=== PATIENT | female | born 2000 | race Caucasian/White ===

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

== ENCOUNTER 2021-04-22 19:58 | Emergency (ER) | payer BC ==
[2021-04-22] MEDS ORDERED: Ondansetron 4 MG/2 ML SDV IVPUSH ONE (20:11)
[2021-04-22] MEDS ORDERED: Sodium Chloride 0.9% 1,000 ML IV ONE (20:11)
[2021-04-22 20:53] LABS: ANION GAP 11.1 meq/L (7-15); CHLORIDE,CL 104 mmol/L (98-107); SODIUM,NA 141 mmol/L (136-145)
[2021-04-22 21:01] LABS: BARBITURATE SCREEN,URINE NEGATIVE (NEGATIVE); BENZODIAZEPINES SCREEN,URINE NEGATIVE (NEGATIVE); EDDP,URINE SCREEN NEGATIVE (NEGATIVE); TCA SCREEN,URINE NEGATIVE (NEGATIVE); THC SCREEN,URINE 50 NG/ML NEGATIVE (NEGATIVE)
[2021-04-22 21:03] LABS: BUPRENORPHINE SCREEN,URINE NEGATIVE (NEGATIVE)
[2021-04-22] MEDS ORDERED: Meclizine 25 MG Tab PO ONE (21:25)
[2021-04-22] MEDS ORDERED: LORazepam 2 MG/ML SDV IVPUSH ONE (21:26)
[2021-04-22 21:33] VITALS: PULSE 82
--- NOTE | 2021-04-22 22:02 | EDM.PDOC ---
ED HPI GENERAL MEDICAL PROBLEM - General Chief Complaint: Cardiovascular Problem Stated Complaint: TACHYCARDIA, DIZZINESS, LIGHTHEADED Time Seen by Provider: 04/22/21 20:33 Source of Information: Reports: Patient History Limitations: Reports: No Limitations - History of Present Illness INITIAL COMMENTS - FREE TEXT/NARRATIVE: Patient comes to ER with complaint of not feeling well this week. Recalls having some ear pressure bilaterally and nasal drainage over the weekend. No sore throat. Thought it might be due to allergies. Yesterday evening started to feel lightheaded when she was up and moving around. Decreased appetite and fluid intake last 24 hours. No appetite. Tonight felt warm, lightheaded feeling worse. Vomited three times. Unable to sleep last night. No one else sick at home. No fevers. No cough/wheeze/SOB. No body aches/headache. No pain complaint. No neuro changes. No UTI complaints. No new supplements/medications. No diarrhea - Related Data Allergies Allergy/AdvReac Type Severity Reaction Status Date / Time No Known Allergies Allergy Verified 04/22/21 20:04 Home Meds: Home Meds Escitalopram Oxalate 10 mg PO DAILY 04/22/21 [History] Levonorgestrel/Ethin.estradiol [Levonor-Eth Estrad 0.15-0.03] 1 tab PO DAILY 04/22/21 [History] Ondansetron [Zofran ODT] 4 mg PO Q6H PRN #5 tab.dis 04/22/21 [Rx] Past Medical History - Past Health History Medical/Surgical History: Denies Medical/Surgical History HEENT History: Reports: Allergic Rhinitis Psychiatric History: Reports: Anxiety Endocrine/Metabolic History: Reports: Obesity/BMI 30+ Immunologic History: Reports: None Oncologic (Cancer) History: Reports: None - Infectious Disease History Infectious Disease History: Reports: None Social & Family History - Family History Family Medical History: No Pertinent Family History - Tobacco Use Tobacco Use Status *Q: Never Tobacco User Second Hand Smoke Exposure: No - Caffeine Use Caffeine Use: Reports: None - Recreational Drug Use Recreational Drug Use: No ED ROS GENERAL - Review of Systems Review Of Systems: Comprehensive ROS is negative, except as noted in HPI. ED EXAM, GENERAL - Physical Exam Exam: See Below Exam Limited By: No Limitations General Appearance: Alert, WD/WN, No Apparent Distress Eye Exam: Bilateral Eye: EOMI, PERRL Ears: Normal External Exam, Normal Canal, Hearing Grossly Normal, Normal TMs Nose: No: Nasal Deformity, Nasal Swelling, Nasal Drainage Throat/Mouth: Normal Inspection, Normal Lips, Normal Oropharynx, Normal Voice, No Airway Compromise Head: Atraumatic, Normocephalic Neck: Normal Inspection, Supple, Non-Tender, Full Range of Motion Respiratory/Chest: No Respiratory Distress, Lungs Clear, Normal Breath Sounds, No Accessory Muscle Use Cardiovascular: Normal Peripheral Pulses, Regular Rate, Rhythm (rate 90s), No JVD, No Murmur GI/Abdominal: Soft, Non-Tender, No Distention, Abnormal Bowel Sounds (diminished) (Female) Exam: Deferred Rectal (Female) Exam: Deferred Back Exam: No: CVA Tenderness (L), CVA Tenderness (R), Muscle Spasm Extremities: Normal Inspection, Normal Range of Motion, No Pedal Edema, Normal Capillary Refill Neurological: Alert, Oriented, Normal Cognition, Normal Gait, No Motor/Sensory Deficits Psychiatric: Normal Affect, Normal Mood Skin Exam: Warm, Dry, Intact, Normal Color #1 Interpretation EKG Date: 04/22/21 Time: 20:33 Rhythm: Other (sinus tach) Rate (Beats/Min): 102 Avis: Normal P-Wave: Present QRS: Normal ST-T: Normal QT: Normal Comparison: NA - No Prior EKG Course - Vital Signs Last Recorded V/S: Last Vital Signs Temp 36.7 C 04/22/21 19:59 Pulse 82 04/22/21 21:32 Resp 17 04/22/21 21:32 BP 130/85 04/22/21 22:04 Pulse Ox 100 04/22/21 21:32 - Orders/Labs/Meds Orders: Active Orders 24 hr Category Date Time Status Orthostatic Vital Signs [RC] ASDIRECTED Care 04/22/21 21:44 Ordered CXR [Chest 1V Frontal] [CR] Stat Exams 04/22/21 20:11 Taken CORONAVIRUS COVID-19 TALHA [MOLEC] Stat Lab 04/22/21 20:40 Received Labs: Laboratory Tests 04/22/21 04/22/21 04/22/21 Range/Units 20:25 20:25 20:26 WBC 13.6 H (4.0-10.2) K/uL RBC 4.97 (3.77-5.09) M/uL Hgb 14.1 (11.7-15.5) g/dL Hct 41.7 (34.0-46.0) % MCV 83.9 L (84.0-98.0) fL MCH 28.4 (28.2-33.3) pg MCHC 33.8 (31.7-36.0) g/dL RDW 13.0 (11.2-14.1) % Plt Count 328 (150-350) K/uL Neut % (Auto) 74.8 (45.0-80.0) % Lymph % (Auto) 15.4 (10.0-50.0) % [place] % (Auto) 8.5 (2.0-14.0) % Eos % (Auto) 1.1 (0.0-5.0) % Baso % (Auto) 0.2 (0.0-2.0) % Neut # (Auto) 10.17 H (1.40-7.00) K/uL Lymph # (Auto) 2.10 (0.50-3.50) K/uL [place] # (Auto) 1.16 H (0.00-1.00) K/uL Eos # (Auto) 0.15 (0.00-0.50) K/uL Baso # (Auto) 0.03 (0.00-0.20) K/uL Sodium 141 (136-145) mmol/L Potassium 3.7 (3.5-5.1) mmol/L Chloride 104 (98-107) mmol/L Carbon Dioxide 25.9 (21.0-32.0) mmol/L Anion Gap 11.1 (7-15) meq/L BUN 7 (7-18) mg/dL Creatinine 0.63 (0.51-1.17) mg/dL Est Cr Clr Drug Dosing 118.81 mL/min Estimated GFR (MDRD) > 60 mL/min Glucose 92 (70-99) mg/dL Calcium 8.9 (8.5-10.1) mg/dL Magnesium 1.9 (1.8-2.4) mg/dL Total Bilirubin 0.2 (0.2-1.0) mg/dL AST 16 (15-37) U/L ALT 25 (12-78) U/L Alkaline Phosphatase 62 (46-116) IU/L Troponin I High Sens < 4 (<=51) ng/L Total Protein 7.7 (6.4-8.2) g/dL Albumin 3.5 (3.4-5.0) g/dL Specimen Type Urinvoid Urine Color Yellow Urine Appearance Slightly cloudy Urine pH 6.5 (5.0-9.0) Ur Specific [place] 1.025 (1.005-1.030) Urine Protein Negative (NEGATIVE) mg/dL Urine Glucose (UA) Negative (NEGATIVE) mg/dL Urine Ketones Negative (NEGATIVE) mg/dL Urine Occult Blood Negative (NEGATIVE) Urine Nitrite Negative (NEGATIVE) Urine Bilirubin Negative (NEGATIVE) Urine Urobilinogen 0.2 (0.2-1.0) E.U./dL Ur Leukocyte Esterase Negative (NEGATIVE) Urine HCG, Qual Urine Opiates Screen (NEGATIVE) Ur Buprenorphine Scrn (NEGATIVE) Ur Oxycodone Screen (NEGATIVE) Ur EDDP (Meth Metab) (NEGATIVE) Ur Barbiturates Screen (NEGATIVE) Ur Tricyclics Screen (NEGATIVE) Ur Amphetamine Screen (NEGATIVE) U Methamphetamines Scrn (NEGATIVE) Urine MDMA Screen (NEGATIVE) U Benzodiazepines Scrn (NEGATIVE) U Cocaine Metab Screen (NEGATIVE) U Marijuana (THC) Screen (NEGATIVE) SARS-CoV-2 Ag (Rapid) (NEGATIVE) 04/22/21 04/22/21 04/22/21 Range/Units 20:26 20:40 20:40 WBC (4.0-10.2) K/uL RBC (3.77-5.09) M/uL Hgb (11.7-15.5) g/dL Hct (34.0-46.0) % MCV (84.0-98.0) fL MCH (28.2-33.3) pg MCHC (31.7-36.0) g/dL RDW (11.2-14.1) % Plt Count (150-350) K/uL Neut % (Auto) (45.0-80.0) % Lymph % (Auto) (10.0-50.0) % [place] % (Auto) (2.0-14.0) % Eos % (Auto) (0.0-5.0) % Baso % (Auto) (0.0-2.0) % Neut # (Auto) (1.40-7.00) K/uL Lymph # (Auto) (0.50-3.50) K/uL [place] # (Auto) (0.00-1.00) K/uL Eos # (Auto) (0.00-0.50) K/uL Baso # (Auto) (0.00-0.20) K/uL Sodium (136-145) mmol/L Potassium (3.5-5.1) mmol/L Chloride (98-107) mmol/L Carbon Dioxide (21.0-32.0) mmol/L Anion Gap (7-15) meq/L BUN (7-18) mg/dL Creatinine (0.51-1.17) mg/dL Est Cr Clr Drug Dosing mL/min Estimated GFR (MDRD) mL/min Glucose (70-99) mg/dL Calcium (8.5-10.1) mg/dL Magnesium (1.8-2.4) mg/dL Total Bilirubin (0.2-1.0) mg/dL AST (15-37) U/L ALT (12-78) U/L Alkaline Phosphatase (46-116) IU/L Troponin I High Sens (<=51) ng/L Total Protein (6.4-8.2) g/dL Albumin (3.4-5.0) g/dL Specimen Type Urine Color Urine Appearance Urine pH (5.0-9.0) Ur Specific [place] (1.005-1.030) Urine Protein (NEGATIVE) mg/dL Urine Glucose (UA) (NEGATIVE) mg/dL Urine Ketones (NEGATIVE) mg/dL Urine Occult Blood (NEGATIVE) Urine Nitrite (NEGATIVE) Urine Bilirubin (NEGATIVE) Urine Urobilinogen (0.2-1.0) E.U./dL Ur Leukocyte Esterase (NEGATIVE) Urine HCG, Qual Negative Urine Opiates Screen Negative (NEGATIVE) Ur Buprenorphine Scrn Negative (NEGATIVE) Ur Oxycodone Screen Negative (NEGATIVE) Ur EDDP (Meth Metab) Negative (NEGATIVE) Ur Barbiturates Screen Negative (NEGATIVE) Ur Tricyclics Screen Negative (NEGATIVE) Ur Amphetamine Screen Negative (NEGATIVE) U Methamphetamines Scrn Negative (NEGATIVE) Urine MDMA Screen Negative (NEGATIVE) U Benzodiazepines Scrn Negative (NEGATIVE) U Cocaine Metab Screen Negative (NEGATIVE) U Marijuana (THC) Screen Negative (NEGATIVE) SARS-CoV-2 Ag (Rapid) Negative (NEGATIVE) Meds: Medications Discontinued Medications Generic Name Dose Route Start Last Admin Trade Name Freq PRN Reason Stop Dose Admin Sodium Chloride 1,000 mls @ 999 mls/hr 04/22/21 20:11 04/22/21 20:30 Normal Saline IV 04/22/21 21:11 999 mls/hr .BOLUS ONE Administration Lorazepam 0.5 mg 04/22/21 21:26 04/22/21 21:44 Lorazepam 2 Mg/Ml Sdv IVPUSH 04/22/21 21:27 0.5 mg ONETIME ONE Administration Meclizine HCl 25 mg 04/22/21 21:25 04/22/21 21:44 Meclizine 25 Mg Tab PO 04/22/21 21:26 25 mg ONETIME ONE Administration Ondansetron HCl 4 mg 04/22/21 20:11 04/22/21 20:30 Ondansetron 4 Mg/2 Ml Sdv IVPUSH 04/22/21 20:12 4 mg ONETIME ONE Administration - Re-Assessments/Exams Free Text/Narrative Re-Assessment/Exam: 04/22/21 22:04 Chest xray unremarkable. Mildly elevated WBC 13. Chemistry unremarkable. Normal UA/drug screen. Negative and Covid test. IV fluid bolus/Zofran give. Pulse improved significantly. Patient anxious. Small dose Ativan given in ED. Meclizine PO. Patient feeling much better. Suspect viral illness based on history and exam is most likely cause. Patient does say that she feels her pulse becomes elevated at times but it is not accompanied but these other symptoms. Recommend they follow up with Sonya at clinic and discuss possible Holter monitor. OK for discharge. Rx for Zofran PRN. Rest/fluids recommended. Observe for changes. Follow up as needed prn problems. Patient felt much improved at time of discharge. Departure - Departure Time of Disposition: 22:07 Disposition: Home, Self-Care 01 Condition: Good Clinical Impression: Heart rate fast, Dehydration, Light-headed feeling Vomiting Qualifiers: Vomiting type: unspecified Vomiting Intractability: non-intractable Nausea presence: unspecified Qualified Code(s): R11.10 - Vomiting, unspecified Prescriptions: Ondansetron [Zofran ODT] 4 mg PO Q6H PRN #5 tab.dis PRN Reason: Nausea Instructions: Viral Gastroenteritis, Adult, [id number] Referrals: PCP,None [Primary Care Provider] - Forms: ED Department Discharge Additional Instructions: Watch for changes. Follow up as needed if there are further concerns. If this is viral, things should improve over the next few days. Take Zofran as needed for nausea. Advance diet as tolerated. Also make follow up appointment with Sonya to discuss your concerns about the intermittently fast heart rate. She can help set you up with a Holter monitor. Sepsis Event Note (ED) - Evaluation Sepsis Screening Result: No Definite Risk - Focused Exam Vital Signs: Vital Signs Temp Pulse Resp BP Pulse Ox 04/22/21 22:04 130/85 04/22/21 21:50 133/85 04/22/21 21:44 129/83 04/22/21 21:32 82 17 149/106 H 100 04/22/21 20:40 101 H 17 144/97 H 99 04/22/21 20:15 109 H 15 129/91 H 100 04/22/21 19:59 36.7 C 108 H 17 138/88 100 - My Orders Last 24 Hours: My Active Orders 04/22/21 20:11 CXR [Chest 1V Frontal] [CR] Stat 04/22/21 20:40 CORONAVIRUS COVID-19 TALHA [MOLEC] Stat 04/22/21 21:44 Orthostatic Vital Signs [RC] ASDIRECTED - Assessment/Plan Last 24 Hours: My Active Orders 04/22/21 20:11 CXR [Chest 1V Frontal] [CR] Stat 04/22/21 20:40 CORONAVIRUS COVID-19 TAHLA [MOLEC] Stat 04/22/21 21:44 Orthostatic Vital Signs [RC] ASDIRECTED
[2021-04-22 22:05] VITALS: BP 130/85
== END 2021-04-22 22:20 | disposition home or self-care (01) ==
LOC: LL.ED 19:58
DX: R42 Dizziness and giddiness (principal); E86.0 Dehydration; R11.10 Vomiting, unspecified; R00.0 Tachycardia, unspecified; E66.9 Obesity, unspecified; Z68.31 Body mass index [BMI] 31.0-31.9, adult; Z20.822 Contact with and (suspected) exposure to COVID-19
CPT/HCPCS: 36415; 71045; 80053; 80305-QW; 81003; 81025; 83735; 84484; 85025; 87426; 93005; 93010; 96374; 96375; 99284; 99284-25; A9270-GY; J2060; J2405; J7030

== ENCOUNTER 2022-02-12 19:59 | Emergency (ER) | payer BC ==
[2022-02-12 20:07] VITALS: BP 146/92; PULSE 97
[2022-02-12] MEDS: Cephalexin 250 MG Cap PO SCH (23:27)
== END 2022-02-12 20:56 | disposition home or self-care (01) ==
LOC: LL.ED 19:59
DX: L03.115 Cellulitis of right lower limb (principal); E66.9 Obesity, unspecified; Z68.35 Body mass index [BMI] 35.0-35.9, adult; Z79.899 Other long term (current) drug therapy
CPT/HCPCS: 99281